=== PATIENT | male | born 1940 | race Caucasian/White ===

== ENCOUNTER 2016-08-06 03:51 | Inpatient (IN) | payer OTHER, MEDICARE ==
[~2016-08-06] VITALS: Ht 185.4 cm; Wt 72.6 kg
[~2016-08-06 03:51] MED LIST: ALPRAZOLAM0.5 M4 PO; ATORVASTATIN CA10 M1 PO; AUGMENTIN 875-1 EACH PO; ESCITALOPRAM OX10 MG PO; NITROFURANTOIN100 M5 PO
--- NOTE | 2016-08-06 08:33 | Admission Core Measures ---
Admission Meds I reviewed the following Meds: Current Medications Sig/Tom Start time Last Medication Dose Stop Time Status Admin Gentamicin Sulfate 80 MG ONCE 08/06 0000 NR (Gentamicin) 08/06 2358 Dextrose/Water 100 ML (D5W) Metronidazole 500 MG ONCE 08/06 NR (Flagyl) 08/06 2358 Sodium Chloride 100 ML (Normal Saline 0.9%) Acute Coronary Syndrome Inclusion Criteria ACS Diagnosis No Inpatient Core Measures LDL Reminder: If No, please order W/I first 24hr of stay Congestive Heart Failure Inclusion Criteria CHF Diagnosis No Cerebrovascular accident Inclusion Criteria CVA/TIA Diagnosis No Inpatient Core Measures Bedside Swallow Eval Reminder: If BSE failed, place ST order Antithrombotic Reminder: Order Antithrombotic Medication by end of day 2 Antithrombotic Reminder: Document Reason Antithrombotic Not ordered by end of day 2 AFIB/Flutter Reminder: If Present, add to problem list AFIB/Flutter Reminder: Order Anticoag Medication for pts with AFIB/Flutter Atherosclerosis Reminder: If Present, add to problem list LDL Reminder: If No, please order W/I first 24hr of stay PT Order Reminder: If No, please order Venous thromboembolism Inpatient Core Measures VTE Risk Factors: Age > 40, Surgery VTE Prophylaxis Ordered Inpt Mech & Pharm No Mech VTE prophylaxis d/t No contraindications No VTE Pharm Prophylaxis d/t No contraindications Inclusion Criteria - Per Current guidelines, there needs to be overlap - treatment for the first 5 days of Warfarin therapy. - Parenteral Anticoagulation (IV or SC) needs to be - given along with Warfarin therapy. VTE Diagnosis No VTE Type NONE VTE Confirmed by (Test) NONE Problem List As ranked by this Provider includes Assessment & Plan 1. S/P colectomy 2. S/P exploratory laparotomy 3. [place]-vesical fistula HOME MEDS Home Med List Alprazolam 0.5 MG TABLET 1 TAB PO TID ANXIETY (Reported) Atorvastatin Calcium 10 MG TABLET 1 TAB PO DAILY CHOLESTEROL (Reported) Escitalopram Oxalate 10 MG TABLET 1 TAB PO DAILY MENTAL HEALTH (Reported)
--- NOTE | 2016-08-06 12:58 | Operative Report ---
Operative/Inv Procedure Report Surgery Date: 08/06/16 Name of Procedure: Sigmoid colectomy with closure of colovesicle fistula Take down splenic flexure Pre-Operative Diagnosis: Colovesical fistula Chronic diverticulitis Post-Operative Diagnosis: Same same Estimated Blood Loss: less than 50ml Surgeon/Utility Accounts Director: ESA CARUSO,KHOA Josue/Erika DAVIS Anesthesia: general endotracheal tube Specimens: Sigmoid colon Microbiology: Urine Operative Indication: 75-year-old male with prior episode of urosepsis related to colovesical fistula. Colonoscopy and cystoscopy showed benign changes. Clinically this represents diverticular etiology. Presents for elective sigmoid resection. Operative/Procedure Note Note: After consent is brought to the operating room and laid supine. Gen. anesthesia was obtained and he was placed in lithotomy position and his abdomen was prepped and draped. Midline was incised sharply. We came through subcutaneous tissues with cautery. Identified the fascia and incised it with cautery. The peritoneum was then entered and fully. Bookwalter retraction system was placed. There is no evidence of acute infection. There is chronic diverticular changes to the sigmoid colon with extension to the posterior aspect of the bladder. Patient had cystoscopy with placement of bilateral ureteral stents preoperatively. Please see urologic dictation. We packed small bowel normal right upper quadrant to expose the sigmoid colon. The white line of Toldt was taken down with electrocautery and dissection made through the avascular planes. We identified the ureter, left-sided with help from the stents. We took her dissection down the pelvis and dissected the sigmoid colon off the posterior bladder with tedious cautery dissection. This portion of the dissection took approximately 45 minutes. There is a tiny hole in the colon with stool coming through. It was approximately 1-2 mm in size. The bladder side didn't appear to have an overt hole. No attempt at suturing it was made. Plan for healing the bladder hole would be decompression with Sinclair catheterization. At this point we took down the white line of Toldt up to the splenic flexure. We then chose a line of transection proximally and divided the bowel with the MATTIE 80 stapler. The mesenteric vessels were then taken with the LigaSure device. The bowel vessels were then divided up on the rectosigmoid junction and the bowel divided with a TA stapler and passed off the field. The peritoneum was irrigated normal saline. It appeared that we had close to enough length but there would be a small amount of tension so I decided to take down the splenic flexure. This was done with cautery. Were able to obtain an extra 3 cm of mobilization to perform a tension-free anastomosis. Towels were laid down in the stapled end of the bowel was opened after a pursestring was placed. The bowel was sized to a 31 EEA stapler. The anvil was placed into it and tied down. The fatty tissue overlying the proposed staple line was taken off with cautery. I then broke scrub and performed rigid proctoscopy. I then performed end-to-end anastomosis. There were 2 intact donuts. Gas insufflation revealed no leak. I then scrubbed back in and inspected the staple line. One area was imbricated with Lembert 3-0 silk sutures. The remainder of the staple line looked perfect. The pelvis then irrigated with normal saline. Hemostasis was adequate. I reinspected the left upper quadrant and noted some active bleeding. Just a small ooze. It appeared to be a tiny tear the capsule the spleen. It was controlled with direct pressure, FloSeal and Surgicel. Hemostasis was adequate on further inspection. We then replaced the omentum and closed the fascia with a running 0 Maxon suture. Was irrigated with saline and skin closed with opal. Sterile dressings applied. Sponge and needle counts are correct. CC: CECI CARUSO,LEONEL Brock
[2016-08-06 13:15] VITALS: BP 130/80
--- NOTE | 2016-08-06 15:05 | PN- General Surgery ---
Subjective Subjective: Expected incisional pain. Not yet out of bed. Denies nausea. No dizziness. No shortness of breath. No chest pains. Tolerating small sips. Objective Vital Signs and I&Os Vital Signs Date Time Temp Pulse Resp B/P Pulse O2 O2 Flow FiO2 Ox Delivery Rate 08/06 1403 Nasal 2.0L Cannula 08/06 1315 97.2 80 18 130/80 98 Nasal 2.0L Cannula 08/06 1315 98 Nasal 2.0L Cannula Intake & Output 08/06 1600 08/06 0800 08/06 0000 08/05 1600 08/05 0800 08/05 0000 Intake Total 650 Output Total Balance 650 Intake, IV 300 Intake, Oral 350 Patient 160 lb Weight Physical Exam: General - alert & oriented x 3. comfortable. no acute distress. Lungs - clear bilaterally. no w/w/r. Cardiac - s1s2. reg. Abdomen - soft. expected incisional tenderness. midline dressing stained, but intact. - one ureteral stent remaining, along with pardo catheter. blood-tinged, aria colored urine. Extremities - warm bilaterally. no c/c/e. calves soft and nontender b/l. athrombics active b/l. Assessment/Plan Assessment/Plan This 75 year old white male with chronic diverticulitis and colovesical fistula is POD#0 s/p open sigmoid colectomy, takedown of splenic flexure with closure of colovesicle fistula clears as tolerated d/c iv fluids in the morning if tolerating clears well tylenol / morphine prn pain control clinda / gentamycin x 2 doses post-op remove remaining ureteral stent in the morning pardo will remain in place through hospitalization and the patient will be discharged with pardo due to the colovesical fistula takedown, as per and oob/ambulation hep sc - dvt ppx f/u am labs will d/w Core Measures/Miscellaneous Venous Thromboembolism VTE Risk Factors: Age > 40, Surgery VTE Contraindications: No Contraindications VTE Prophylaxis Ordered Inpt Mech & Pharm VTE Diagnosis: No VTE Type: NONE VTE Confirmed by (Test): NONE Beta Kristin Is Beta Kristin a Home Med? No Antibiotics Is Patient on Antibiotics? Yes If Yes: prophylaxis
[2016-08-06 15:17] VITALS: BP 136/78
[2016-08-06 17:38] VITALS: BP 136/66
[2016-08-06 20:15] VITALS: BP 128/70
[2016-08-06 22:55] VITALS: BP 128/70
[2016-08-07 03:00] VITALS: BP 132/74
[2016-08-07 07:01] VITALS: BP 134/82
--- NOTE | 2016-08-07 07:30 | PN- General Surgery ---
See Addendum Subjective Subjective: POD #1 s/p open sigmoid colectomy/takedown of colovesicular fistula for diverticular disease. Resting comfortably in bed. Issues overnight with IV morphine making patient 'loopy'. Prefers IV tylenol. Denies CP/SOB, N/V, F/C. Yet to ambulate. Voiding via pardo catheter- one stent remaining in place. Objective Vital Signs and I&Os Vital Signs Date Time Temp Pulse Resp B/P Pulse O2 O2 Flow FiO2 Ox Delivery Rate 08/07 0701 98.1 66 16 134/82 99 Nasal 2.0L Cannula 08/07 0300 97.6 70 18 132/74 98 08/07 0000 Nasal 2.0L Cannula 08/06 2255 97.6 72 20 128/70 98 Nasal Cannula 08/06 2014 97.6 72 20 128/70 98 Nasal Cannula 08/06 1738 98.2 76 20 136/66 97 08/06 1517 97.1 72 20 136/78 98 Nasal 2.0L Cannula 08/06 1403 Nasal 2.0L Cannula 08/06 1315 97.2 80 18 130/80 98 Nasal 2.0L Cannula 08/06 1315 98 Nasal 2.0L Cannula Intake & Output 08/07 0800 08/07 0000 08/06 1600 08/06 0800 08/06 0000 08/05 1600 Intake Total 1000 1900 650 Output Total 250 450 Balance 750 1450 650 Intake, IV 1000 1200 300 Intake, Oral 700 350 Output, Urine 250 450 Patient 160 lb Weight Physical Exam: Gen: AAOx3 in NAD Cor: S1+S2+ Lungs: CTA martine Abd: soft, NT, ND, scant BS auscultated. Lower midline incisional dressing with dried sanguinous drainage. No surrounding erythema. Ext: no edema or calf tenderness to martine lower extremities. Palpable DP pulses martine. Current Medications: Current Medications Sig/Tom Start time Last Medication Dose Route Stop Time Status Admin Acetaminophen 1,000 MG Q6H 08/06 1600 AC 08/07 IV 08/07 1159 0431 Alprazolam 0.5 MG TID PRN 08/06 0830 AC PO 08/13 0829 Atorvastatin Calcium 10 MG 1700 08/06 1700 AC 08/06 PO 1630 Clindamycin 600 MG IQ8 08/06 1600 DC 08/06 Dextrose/Water 50 ML IV 08/07 0029 1822 Escitalopram Oxalate 10 MG DAILY 08/06 1000 AC 08/06 PO 1452 Gentamicin Sulfate 80 MG IQ8 08/06 1600 DC 08/06 Dextrose/Water 100 ML IV 08/07 0030 1630 Gentamicin Sulfate 80 MG ONCE 08/06 0000 DC Dextrose/Water 100 ML IV 08/06 2359 Heparin Sodium 5,000 UNIT Q8 08/06 2200 AC 08/07 (Porcine) SC 0451 Hydromorphone HCl 2 MG .STK-MED ONE 08/06 1155 DC IM 08/06 1156 Metronidazole 500 MG ONCE 08/06 0000 DC Sodium Chloride 100 ML IV 08/06 2359 Morphine Sulfate 2 MG Q3P PRN 08/06 1330 DC IV Morphine Sulfate 4 MG Q3P PRN 08/06 1330 DC 08/07 IV 0200 Morphine Sulfate 6 MG Q3P PRN 08/06 1330 DC IV Ondansetron HCl 4 MG Q6P PRN 08/06 1330 AC IV Pantoprazole Sodium 40 MG DAILY 08/06 1000 AC 08/06 IV 1450 Potassium Chloride 20 MEQ Q10H 08/06 1330 r 08/07 Dextrose/Sodium 1,000 ML IV 0038 Chloride Assessment/Plan Assessment/Plan A: POD #1 s/p sigmoid colectomy for diverticular disease/CV fistula. Stents placed intraoperatively with one remaining in place. Pardo in place. AVSS. Plan: Will decrease IVF to 75ml/hr as patient not taking much clears other than water. Will encourage PO intake today. Await increase in bowel function. OOB and ambulate. Physical therapy ordered. Likely stent removal today. Pardo to remain in place. Will d/c Morphine. Keep IV Tylenol. Will discuss with environmental field office manager attending regarding use of Toradol. Oxygen weaned off during interview. Core Measures/Miscellaneous Venous Thromboembolism VTE Risk Factors: Age > 40, Surgery VTE Contraindications: No Contraindications VTE Prophylaxis Ordered Inpt Mech & Pharm VTE Diagnosis: No VTE Type: NONE VTE Confirmed by (Test): NONE Beta Kristin Is Beta Kristin a Home Med? No Antibiotics Is Patient on Antibiotics? Yes If Yes: prophylaxis
[2016-08-07 08:56] LABS: ABSOLUTE BASOPHIL COUNT 0 /CUMM (0.0-0.2); ABSOLUTE EOSINOPHIL COUNT 0 /CUMM (0.0-0.7); ABSOLUTE GRANULOCYTE CT 11.1 /CUMM (1.4-6.5); ABSOLUTE MONOCYTE COUNT 1.3 /CUMM (0.10-0.60); BASOPHIL % 0 % (0.0-2.0); EOSINOPHIL % 0 % (0-5); GRANULOCYTE % 83.3 % (42.2-75.2); MEAN CORPUSCULAR HGB 33.1 PG (27.0-31.0); MEAN CORPUSCULAR HGB CONC 33.8 G/DL (33.0-37.0); MEAN CORPUSCULAR VOLUME 97.9 FL (80.0-94.0); MEAN PLATELET VOLUME 7.9 FL (7.4-10.4); PLATELET COUNT 176 /CUMM (130-400); RBC DISTRIBUTION WIDTH 13.4 % (11.5-14.5); RED BLOOD CELL CT 3.37 /CUMM (4.70-6.10)
--- NOTE | 2016-08-07 09:00 | Operative Report ---
Operative/Inv Procedure Report Surgery Date: 08/06/16 Name of Procedure: Cystoscopy and insertion of bilateral ureteral stents Pre-Operative Diagnosis: [place]-vesical fistula Post-Operative Diagnosis: same Estimated Blood Loss: scant Surgeon/Particleboard Factory Worker: KHOA Bailey MD Anesthesia: general endotracheal tube Drains: Right and Left ureteral stents and pardo Specimens: Urine C&S Complications: none Condition: stable Operative Indication: colo-vesical fistula. Pre op ureteral stents requested Operative/Procedure Note Note: The patient was taken to the OR and identified. He was placed on the operating table in the supine position and a time out executed appropriately. Generan anesthesia was induced via an ETT. He was then placed in the dorsal lithotomy position and prepped and draped in the usual manner for cystoscopy. A surgical pause was executed appropriately. The 22 fr cystoscope sheath was placed in the bladder under direct vision using the 30 degree lens. The anterior urethra was normal. The prostate was definitely enlarged causing bladder outlet obstruction. Urine was collected for culture. The bladder was inspected. It was heavily trabeculated and diffusely inflamed. The left ureteral orifice was identified and an open ended catheter placed in the orificed and advanced up to the level of the kidney. The right ureteral orifice was then identified and an open ended catheter placed within it and advanced up the the level of the R kidney. The cystoscope was removed leaving both ureteral stents in place. A pardo was placed and the stents fixed to the pardo with cloth tape. Each stent and the pardo were placed to separate drainage bags. The patient tolerated this portion of the procedure well and was then to undergo sigmoid resection Findings: Diffusely inflamed, heavily trabeculated bladder and enlarged prostate. Discharge Disposition: PACU
[2016-08-07 11:09] LABS: WHITE BLOOD CELL COUNT 13.3 /CUMM (4.8-10.8)
[2016-08-07 14:57] VITALS: BP 110/70
[2016-08-07 22:35] VITALS: BP 148/84
[2016-08-08 06:51] VITALS: BP 140/90
--- NOTE | 2016-08-08 08:43 | PN- General Surgery ---
See Addendum Subjective Subjective: Mr Claudio has no major complaints this morning. He tolerated clears all day yesterday and has had 3 BM's over the past 24 hours. Although he denies nausea, he does admit to decreased appetite this morning and feeling a little "quesy." He is not typically a morning/breakfast eater, but is requesting coffee. Pardo catheter remains in place. Otherwise denies TOMLINSON, dizziness, CP, SOB. Objective Vital Signs and I&Os Vital Signs Date Time Temp Pulse Resp B/P Pulse O2 O2 Flow FiO2 Ox Delivery Rate 08/08 0651 97.9 78 16 140/90 93 Room Air 08/07 2235 98.3 77 20 148/84 92 Room Air 08/07 1457 97.7 71 20 110/70 93 Nasal Cannula Intake & Output 08/08 1600 08/08 0800 08/08 0000 08/07 1600 08/07 0800 08/07 0000 Intake Total 792 135 3798 1000 1900 Output Total 600 950 520 250 450 Balance 150 -150 297 301 1254 Intake, IV 063 929 7329 1200 Intake, Oral 150 800 480 700 Output, Urine 600 950 520 250 450 Patient 160 lb Weight Physical Exam: General: Pt is awake and alert. NAD. Cardiac: Regular. Pulmonary: CTA bilaterally. Abdomen: Soft, mildly distended. Midline dressing contained a moderate amount of old bloody drainage. It was removed today. No active drainage or erythema noted. Incision remains intact with opal in place. Hypoactive BS were heard. Ext: warm, no edema or calf tenderness appreciated. Assessment/Plan Assessment/Plan Pt is a 75 yo M with a pmh significant for hyperlipidemia, anxiety, and diverticular disease, who is now POD #2 s/p open sigmoid colectomy for colovesicular fistula. Remaining ureteral stent was removed yesterday and pardo remains in place. Plan: -Advance diet to full liquids with toast. Will continue to advance as tolerated. -Heplock IVF. -F/u morning labs. -Morphine was dc'ed due to intolerance. He is using IV APAP around the clock and prn toradol for discomfort. Will hold IV APAP after 4 doses and convert to po tylenol. Also add percocet as needed when taking adequate po. -Leave pardo in place for colovesicula fistula. -24 hours of IV abx ppx complete. -SC heparin and alps for DVT ppx. Encourage ambulation. -Will d/w attending. Core Measures/Miscellaneous Venous Thromboembolism VTE Risk Factors: Age > 40, Surgery VTE Contraindications: No Contraindications VTE Prophylaxis Ordered Inpt Mech & Pharm VTE Diagnosis: No VTE Type: NONE VTE Confirmed by (Test): NONE Beta Kristin Is Beta Kristin a Home Med? No Antibiotics Is Patient on Antibiotics? No
[2016-08-08 09:16] LABS: ABSOLUTE BASOPHIL COUNT 0 /CUMM (0.0-0.2); ABSOLUTE EOSINOPHIL COUNT 0 /CUMM (0.0-0.7); ABSOLUTE GRANULOCYTE CT 8.6 /CUMM (1.4-6.5); ABSOLUTE MONOCYTE COUNT 1.1 /CUMM (0.10-0.60); BASOPHIL % 0.2 % (0.0-2.0); EOSINOPHIL % 0.3 % (0-5); GRANULOCYTE % 79.4 % (42.2-75.2); HEMATOCRIT 36.5 % (42-52); MEAN CORPUSCULAR HGB CONC 33.4 G/DL (33.0-37.0); MEAN CORPUSCULAR VOLUME 98.7 FL (80.0-94.0); MEAN PLATELET VOLUME 8.6 FL (7.4-10.4); PLATELET COUNT 186 /CUMM (130-400); RBC DISTRIBUTION WIDTH 13.3 % (11.5-14.5); WHITE BLOOD CELL COUNT 10.8 /CUMM (4.8-10.8)
[2016-08-08 14:10] VITALS: BP 140/80
--- NOTE | 2016-08-08 19:29 | Patient Discharge Instructions ---
Discharge Instructions General Discharge Information You were seen/treated for: COLOVESICAL FISTULA You had these procedures: OPEN SIGMOID RESECTION Watch for these problems: FEVER >101, REDNESS, DRAINAGE FROM THE WOUND, INCREASED ABDOMINAL PAIN, PERSISTENT NAUSEA/VOMITING, CHEST PAIN, SOB Call Surgeon to remove: Huson (2 WEEKS POSTOP) Do not soak the wound: Yes No bath, but you may shower: Yes Other wound care: YOU MAY SHOWER DESIRED. OTHERWISE KEEP WOUND CLEAN AND DRY AT ALL TIMES. DRY DRESSING IF NEEDED FOR COMFORT. Diet Continue normal diet: No Recommended Diet: Low Residue Activity Full Activity/No Limits: No Activity Self Limited: Yes Pounds, do NOT lift more than: 5 Other activity limits: NO STRENUOUS ACTIVITY OR HEAVY LIFTING, PUSHING OR PULLING. NO DRIVING IF USING NARCOTICS. Acute Coronary Syndrome Inclusion Criteria At DC or during hospital stay patient has or had the following: ACS DIAGNOSIS No Discharge Core Measures Meds if any: Prescribed or Continued at Discharge Meds if any: NOT Prescribed or Continued at Discharge Congestive Heart Failure Inclusion Criteria At DC or during hospital stay patient has or had the following: CHF DIAGNOSIS No Discharge Core Measures Meds if any: Prescribed or Continued at Discharge Meds if any: NOT Prescribed or Continued at Discharge Cerebrovascular accident Inclusion Criteria At DC or during hospital stay patient has or had the following: CVA/TIA Diagnosis No Discharge Core Measures Meds if any: Prescribed or Continued at Discharge Meds if any: NOT Prescribed or Continued at Discharge Venous thromboembolism Inclusion Criteria VTE Diagnosis No VTE Type NONE VTE Confirmed by (Test) NONE Discharge Core Measures - Per Current guidelines, there needs to be overlap - treatment for the first 5 days of Warfarin therapy. - If discharged on Warfarin prior to 5 days of - overlap therapy, the patient will need to be - assessed for post discharge needs including - *Post discharge parental anticoagulation - *Warfarin and/or parental anticoagulation education - *Follow up date to check INR post discharge At least 5 days overlap therapy as Inpatient No Meds if any: Prescribed or Continued at Discharge Note: Overlap Therapy is Warfarin and Anticoagulant Meds if any: NOT Prescribed or Continued at Discharge
[2016-08-08 23:22] VITALS: BP 148/70
[2016-08-09 06:31] VITALS: BP 154/80
--- NOTE | 2016-08-09 07:41 | PN- General Surgery ---
See Addendum Subjective Subjective: No complaints. Going to try low residue diet for breakfast. Reports some intermittent nausea. Passing flatus and reports multiple bms. Out of bed and ambulating with rolling walker. No dizziness. No shortness of breath. No chest pains. Objective Vital Signs and I&Os Vital Signs Date Time Temp Pulse Resp B/P Pulse O2 O2 Flow FiO2 Ox Delivery Rate 08/09 0631 97.9 70 20 154/80 95 Room Air 08/08 2322 99.5 80 20 148/70 93 Room Air 08/08 1410 98.4 73 20 140/80 94 Room Air Intake & Output 08/09 0800 08/09 0000 08/08 1600 08/08 0800 08/08 0000 08/07 1600 Intake Total 704 207 0957 178 343 6525 Output Total 675 650 600 950 520 Balance 120 -555 530 150 -150 610 Intake, IV 300 600 650 Intake, Oral 120 120 880 150 800 480 Number 2 Bowel Movements Output, Urine 675 650 600 950 520 Patient 160 lb Weight Physical Exam: General - alert and oriented x 3. comfortable no acute distress. Cardiac - s1s2. reg. Lungs - clear bilaterally Abdomen - soft. midline incision well approximated with opal. no erythema. no exudates. Extremities - warm b/l. no c/c/e. calves soft and nontender b/l. Assessment/Plan Assessment/Plan This 75 year old male is POD #3 s/p open sigmoid colectomy for colovesicular fistula, with pardo that will remain in place at the time of his discharge Going to try low residue diet for breakfast pain improves with iv tylenol and prn toradol. not taking morphine. oob/ambulating hep sc - dvt ppx pardo renewed due to hx of colovesicular fistula f/u am labs d/c planning, today vs tomorrow will d/w Core Measures/Miscellaneous Venous Thromboembolism VTE Risk Factors: Age > 40, Surgery VTE Contraindications: No Contraindications VTE Prophylaxis Ordered Inpt Mech & Pharm VTE Diagnosis: No VTE Type: NONE VTE Confirmed by (Test): NONE Beta Kristin Is Beta Kristin a Home Med? No Antibiotics Is Patient on Antibiotics? No
[2016-08-09] MEDS ORDERED: PERCOCET 5-3251 EACH PO (07:46)
[2016-08-09 14:45] VITALS: BP 120/70
[2016-08-09 22:54] VITALS: BP 134/80
[2016-08-10 06:58] VITALS: BP 140/82
--- NOTE | 2016-08-10 08:40 | PN- General Surgery ---
Subjective Subjective: NAEO. Patient without new c/o. Pain controlled. Tolerating diet without n/v. +flatus/bm. OOB and ambulating. Denies CP/SOB. Objective Vital Signs and I&Os Vital Signs Date Time Temp Pulse Resp B/P Pulse O2 O2 Flow FiO2 Ox Delivery Rate 08/10 0658 98.4 66 16 140/82 96 Room Air 08/10 0000 95 Room Air 08/09 2254 99.5 69 20 134/80 95 Room Air 08/09 1445 98.7 70 20 120/70 96 Intake & Output 08/10 1600 08/10 0800 08/10 0000 08/09 1600 08/09 0800 08/09 0000 Intake Total 1100 500 550 120 120 Output Total 250 125 200 675 Balance 850 375 350 120 -555 Intake, IV 500 Intake, Oral 600 500 550 120 120 Number 3 Bowel Movements Output, Urine 250 125 200 675 Physical Exam: General: NAD, comfortable, A&Ox3 Chest: CTAB, no wheezes, no rales. Heart S1S2 normal. Abdomen: soft, nondistended. Appropriately TTP. Midline incision intact without signs of infection. +Bowel sounds x4 quadrants Ext: No calve swelling/TTP, neurovascularly intact bilateral lower extremities Current Medications: Current Medications Sig/Tom Start time Last Medication Dose Route Stop Time Status Admin Acetaminophen 650 MG Q4P PRN 08/08 1000 AC 08/09 PO 1116 Alprazolam 0.5 MG TID PRN 08/06 0830 AC 08/10 PO 08/13 0829 0415 Atorvastatin Calcium 10 MG 1700 08/06 1700 AC 08/09 PO 1600 Docusate Sodium 100 MG BID PRN 08/09 0745 AC PO Escitalopram Oxalate 10 MG DAILY 08/06 1000 AC 08/09 PO 0942 Heparin Sodium 5,000 UNIT Q8 08/06 2200 AC 08/08 (Porcine) SC 1415 Ketorolac 15 MG Q6-PRN PRN 08/07 1245 AC 08/10 Tromethamine IV 08/12 1244 0420 Magnesium Oxide 400 MG BID 08/09 1100 DC 08/09 PO 08/09 2201 1342 Ondansetron HCl 4 MG Q6P PRN 08/06 1330 AC IV Oxycodone/ 1 TAB Q4P PRN 08/08 0900 AC Acetaminophen PO Oxycodone/ 2 TAB Q4P PRN 08/08 0900 AC Acetaminophen PO Pantoprazole Sodium 40 MG DAILY 08/06 1000 AC 08/09 IV 0942 Patient Medication 1 ED .STK-MED ONE 08/09 1421 DC Teaching ED 08/09 1422 Potassium Chloride 40 MEQ ONCE ONE 08/09 1100 DC 08/09 PO 08/09 1101 1342 Sodium Chloride 500 ML BOLUS ONE 08/09 2300 DC 08/09 IV 08/09 2359 2353 Results Last 48 Hours of Labs: Laboratory Tests 08/09 0820 Chemistry Sodium (137 - 145 mmol/L) 138 Potassium (3.5 - 5.1 mmol/L) 3.7 Chloride (98 - 107 mmol/L) 99 Carbon Dioxide (22 - 30 mmol/L) 27 Anion Gap (5 - 16) 11 BUN (9 - 20 mg/dL) 6 L Creatinine (0.7 - 1.2 mg/dL) 0.7 Estimated GFR (>60 ml/min) > 60 BUN/Creatinine Ratio (7 - 25 %) 8.6 Magnesium (1.6 - 2.3 mg/dL) 1.8 Assessment/Plan Assessment/Plan 75yo M POD #4 s/p open sigmoid colectomy for colovesicular fistula, with pardo that will remain in place at the time of his discharge Pain control LRD oob/ambulate hep sc - dvt ppx pardo renewed due to hx of colovesicular fistula f/u am labs d/c home today d/w Core Measures/Miscellaneous Venous Thromboembolism VTE Risk Factors: Age > 40, Surgery VTE Contraindications: No Contraindications VTE Prophylaxis Ordered Inpt Mech & Pharm VTE Diagnosis: No VTE Type: NONE VTE Confirmed by (Test): NONE Beta Kristin Is Beta Kristin a Home Med? No Antibiotics Is Patient on Antibiotics? No
--- NOTE | 2016-08-10 08:55 | Surgical Discharge Summary ---
Visit Information Visit Dates Admission Date: 08/06/16 Discharge Date: 08/10/16 History of Present Illness Chief Complaint: PNEUMATURIA Medical History Blood Transfusion Hx: No Neurological: NONE EENT: NONE Cardiovascular: hyperlipidemia Respiratory: NONE Gastrointestinal: history of polyp excision with colonoscopy 5 y/a Hepatic: NONE Renal: dx with bph, no tx Musculoskeletal: chronic back pain Psychiatric: anxiety, depression Endocrine: NONE Blood Disorders: NONE Cancer(s): NONE DISTRICT OR DISTRICT OFFICE DIRECTOR/Reproductive: NONE History of MRSA: No History of VRE: No History of CDIFF: No Isolation History: Standard Surgical History Pertinent Surgical History: colon resection, HERNIA REAPAIR, RT ROTATOR CUFF SIGMOID COLECTOMY Psychosocial History Where Do You Live? Home Who Do You Live With? Significant Other Services at Home: None What is Your Primary Language? Italian Review of Systems: NOT PERFORMED AT D/C Hospital Course Course Attending Physician: KHOA SEE MD Primary Care Physician: LEONEL ORNELAS MD Hospital Course: ADMITTED AFTER UNEVENTFUL SIGMOID COLECTOMY FOR COLOVESICLE FISTULA. HE HAD RETURN OF BOWEL FUNCTION POD1 AND DIET ADVANCED. ELLIS WAS LEFT IN PLACE DUE TO HEALING FISTULA SITE AND WILL BE REMOVED OUTPT IN FOLLOW UP. Allergies: Coded Allergies: amoxicillin (From AUGMENTIN) (Intermediate, RASH 05/13/16) clavulanic acid (From AUGMENTIN) (Intermediate, RASH 05/13/16) Significant Procedures: CYSTOSCOPY WITH STENT PLACEMENT SIGMOID COLECTOMY WITH TAKEDOWN SPLENIC FLEXURE. Disposition Summary Disposition Principal Diagnosis: COLOVESICLE FISTULA Additional Diagnosis: NONE Discharge Disposition: home or self care Discharge Instructions General Discharge Information Code Status: Full Code Patient's Diet: LOW RESIDUAL Patient's Activity: NO LIFTING Follow-Up Instructions/Appts: 2 WEEKS ARRANGED FOR STAPLE REMOVAL AND ELLIS REMOVALL. Medications at Discharge Discharge Medications: Continue taking these medications: Atorvastatin Calcium (Atorvastatin Calcium) 10 MG TABLET 1 Tablet ORAL DAILY Qty = 30 Comments: Last Taken: 05/08/16 Time: 855 AM Alprazolam (Alprazolam) 0.5 MG TABLET 1 Tablet ORAL THREE TIMES DAILY Qty = 90 Comments: Last Taken: 05/08/16 Time: 855 AM Escitalopram Oxalate (Escitalopram Oxalate) 10 MG TABLET 1 Tablet ORAL DAILY Qty = 30 Comments: Last Taken: 05/08/16 Time: 855 AM Start taking the following new medications: Acetaminophen (Tylenol) 325 MG TABLET 650 Milligram ORAL EVERY 4 HOURS NEEDED as needed for PAIN SCALE 1-3 ( MILD) Days = 10 No Refills Instructions: available over the counter. do not combine with tylenol. Docusate Sodium (Docusate Sodium) 100 MG CAPSULE 100 Milligram ORAL TWICE DAILY as needed for CONSTIPATION Days = 14 No Refills Instructions: stool softener available over the counter Oxycodone HCl/Acetaminophen (Percocet 5-325 MG Tablet) 5 MG-325 MG TABLET 1-2 Tablet ORAL EVERY 4-6 HOURS NEEDED as needed for pain control Qty = 30 No Refills Instructions: take as directed, as needed for pain control. do not combine with tylenol. Copies To: FLY CARUSO,GRAHAM Anguiano; CECI CARUSO,LEONEL Brock
[2016-08-10] MEDS ORDERED: TYLENOL325 M1 PO (10:42)
[2016-08-10] MEDS ORDERED: DOCUSATE SODIU100 M3 PO (10:43)
== END 2016-08-10 13:15 | disposition home health service (06) | DRG 330 ==
LOC: ENRESERVTM → ENRESERVDT → 2NA 03:51 → ENPENDDIS 03:51 → SDA 03:51 → 2NA 13:05
PROVIDERS: Physician Assistant; Physician Assistant Surgical; ADMIT Surgery
PROC: 0DBN0ZZ Excision of Sigmoid Colon, Open Approach (ICD-10-PCS; principal; 2016-08-06)
PROC: 0DQN0ZZ Repair Sigmoid Colon, Open Approach (ICD-10-PCS; principal; 2016-08-06)
PROC: 0T788DZ Dilation of Bilateral Ureters with Intraluminal Device, Via Natural or Artificial Opening Endoscopic (ICD-10-PCS; 2016-08-06)
DX: K57.30 Diverticulosis of large intestine without perforation or abscess without bleeding (principal); N32.1 Vesicointestinal fistula; Z87.891 Personal history of nicotine dependence; E78.5 Hyperlipidemia, unspecified; F41.1 Generalized anxiety disorder
CPT/HCPCS: 2NASP; 36415; 82436; 87086; 88307; 93005; 93010; 97116-GO; 97161-GP; C9399; J0131; J1580; J1644; J2405; J7040; J7042; S5012

== ENCOUNTER 2017-01-19 09:19 | Emergency (ER) | payer OTHER, MEDICARE ==
[~2017-01-19] VITALS: Ht 185.4 cm; Wt 73.5 kg
[~2017-01-19 09:19] MED LIST changes: +DOCUSATE SODIU100 M3 PO; +PERCOCET 5-3251 EACH PO; +TYLENOL325 M1 PO
[2017-01-19] MEDS ORDERED: TRAZODONE HCL50 M1 PO (10:27)
[2017-01-19 10:52] LABS: ABSOLUTE BASOPHIL COUNT 0 /CUMM (0.0-0.2); ABSOLUTE EOSINOPHIL COUNT 0.1 /CUMM (0.0-0.7); ABSOLUTE GRANULOCYTE CT 6.2 /CUMM (1.4-6.5); ABSOLUTE LYMPH COUNT 1.1 /CUMM (1.2-3.4); ABSOLUTE MONOCYTE COUNT 0.9 /CUMM (0.10-0.60); BASOPHIL % 0.4 % (0.0-2.0); EOSINOPHIL % 1.1 % (0-5); GRANULOCYTE % 74.5 % (42.2-75.2); HEMATOCRIT 41.6 % (42-52); MEAN CORPUSCULAR HGB 31.7 PG (27.0-31.0); MEAN CORPUSCULAR HGB CONC 32.9 G/DL (33.0-37.0); MEAN CORPUSCULAR VOLUME 96.4 FL (80.0-94.0); MEAN PLATELET VOLUME 7.2 FL (7.4-10.4); PLATELET COUNT 207 /CUMM (130-400); RBC DISTRIBUTION WIDTH 13.9 % (11.5-14.5); RED BLOOD CELL CT 4.31 /CUMM (4.70-6.10); WHITE BLOOD CELL COUNT 8.3 /CUMM (4.8-10.8)
--- NOTE | 2017-01-19 10:54 | RADIOLOGY REPORT ---
EXAMINATION: XR CHEST CLINICAL INFORMATION: Chest pain. COMPARISON: Chest radiograph dated 05/05/2016. TECHNIQUE: 2 views of the chest were obtained. FINDINGS: The heart is normal in size. There is mild atherosclerotic calcification of the aortic knob. The lungs appear slightly hyperinflated, consistent with chronic obstructive pulmonary physiology The lungs are clear. No pleural effusion or pneumothorax. Degenerative changes of the thoracic spine. IMPRESSION: No acute disease. Findings consistent with chronic obstructive pulmonary physiology.
--- NOTE | 2017-01-19 11:14 | ED GENERAL ADULT ---
History of Present Illness General Chief Complaint: General Adult Stated Complaint: SENT BY PMD FOR LETHARGY/JOINT PAIN Source: patient, family Exam Limitations: no limitations Vital Signs & Intake/Output Vital Signs & Intake/Output ED Intake and Output 01/20 0000 01/19 1200 Intake Total Output Total Balance Patient 162 lb Weight Allergies Coded Allergies: amoxicillin (From AUGMENTIN) (Intermediate, RASH 05/13/16) clavulanic acid (From AUGMENTIN) (Intermediate, RASH 05/13/16) Reconcile Medications Alprazolam 0.5 MG TABLET 1 TAB PO TID ANXIETY (Reported) Atorvastatin Calcium 10 MG TABLET 1 TAB PO DAILY CHOLESTEROL (Reported) Doxycycline Hyclate 100 MG TABLET 1 TAB PO BID COPD Escitalopram Oxalate 10 MG TABLET 1 TAB PO DAILY MENTAL HEALTH (Reported) Trazodone HCl 50 MG TABLET 1 TAB PO TID PRN ANXIETY (Reported) Triage Note: PT STATES THAT HE CALLED HIS PMD DUE TO BEING TIRED AND ACHEY FOR THE PAST WEEK. PMD DR ORNELAS TOLD HIM TO COME TO ER AND HAVE BLOOD WORK AND CXR. DENIES COUGH/SOB/CP.AFEBRILE Triage Nurses Notes Reviewed? yes Onset: Gradual Duration: week(s): Timing: recent history Severity: moderate HPI: 76-year-old male presents to emergency department complaining of arthralgias and increasing fatigue 1 week. Patient states that he called primary care doctor's office yesterday who told him to report to the emergency department for a chest x-ray and blood work. He is worried about Lyme disease however has not noticed a tick on him recently. He does have a history of osteoarthritis. He denies fevers, chills, abdominal pain, nausea, vomiting, diarrhea, constipation, rash, urinary symptoms. He was treated a few months ago for a UTI. Patient is a former smoker, quit years ago. (SHUKRI PERKINS,PASHA RESTREPO) Past History Travel History Traveled to [place] past 21 day No Medical History Any Pertinent Medical History? 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 No (PASHA WATT PA-C) Review of Systems Review of Systems Constitutional: Reports: see HPI. EENTM: Reports: no symptoms. Respiratory: Reports: no symptoms. Cardiovascular: Reports: no symptoms. GI: Reports: no symptoms. Genitourinary: Reports: no symptoms. Musculoskeletal: Reports: see HPI. Skin: Reports: no symptoms. Neurological/Psychological: Reports: no symptoms. Hematologic/Endocrine: Reports: no symptoms. Immunologic/Allergic: Reports: no symptoms. All Other Systems: Reviewed and Negative (PASHA WATT PA-C) Physical Exam Physical Exam General Appearance: well developed/nourished, no apparent distress, alert, awake Comments: Well-developed well-nourished person in no acute distress HEENT: HEAD is atraumatic. moist mucous membranes, no erythema. Neck: Supple, no lymphadenopathy, normal range of motion without pain or tenderness Back: Nontender, Full range of motion Cardiovascular: Regular rate and rhythms no murmurs rubs or gallops, normal JVP Respiratory: No respiratory distress. Patient speaking in full complete sentences. Breath sounds clear to auscultation bilaterally: NO W/R/R Abdomen: Soft, nontender nondistended, no appreciable organomegaly. Normal bowel sounds. No rebound/guarding, No appreciable enlargement of the abdominal aorta, No ascites. Extremity: No edema, full range of motion of extremities, normal and equal pulses bilaterally Neuro: Alert oriented x3, motor sensory normal, There were no obvious focal neurologic abnormalities. Skin: No appreciable rash on exposed skin, skin is warm and dry. Psych: Mood and affect is normal, memory and judgment is normal. Core Measures ACS in differential dx? Yes CVA/TIA Diagnosis: No Severe Sepsis Present: No Septic Shock Present: No (PASHA WATT PA-C) Progress Differential Diagnoses I considered the following diagnoses in my evaluation of the patient: [lyme disease, osteoarthritis, anemia, viral illness, COPD exacerbation, ACS] Plan of Care: Orders Procedure Date/time Status EKG 01/19 1119 Active LYME TITRE 01/19 1020 Active TROPONIN LEVEL 01/19 1012 Complete COMPREHENSIVE METABOLIC PANEL 01/19 1012 Complete CBC WITHOUT DIFFERENTIAL 01/19 1012 Complete Laboratory Tests 01/19/17 1044: Anion Gap 12, Estimated GFR > 60, BUN/Creatinine Ratio 12.5, Glucose 111 H, Calcium 9.5, Total Bilirubin 0.7, AST 26, ALT 28, Alkaline Phosphatase 68, Troponin I < 0.01, Total Protein 7.2, Albumin 4.4, Globulin 2.8, Albumin/ Globulin Ratio 1.6, CBC w Diff NO MAN DIFF REQ, RBC 4.31 L, MCV 96.4 H, MCH 31.7 H, RDW 13.9, MPV 7.2 L, Gran % 74.5, Lymphocytes % 13.2 L, Monocytes % 10.8 H, Eosinophils % 1.1, Basophils % 0.4, Absolute Granulocytes 6.2, Absolute Lymphocytes 1.1 L, Absolute Monocytes 0.9 H, Absolute Eosinophils 0.1, Absolute Basophils 0, PUBS MCHC 32.9 L, Lyme Disease Antibody Pending CXR shows COPD without acute disease. PAtient is a former smoker. Current fatigue may possibly be due to worsening of chronic COPD, patient previously unaware of COPD diagnosis. Spoke with Dr. Wasserman regarding patient, will give doxy BID x 10 days to cover for lyme/pulmonary disease. Patient will follow up with transition lead referal given to him today. The patient will follow up with his primary care doctor for further workup and evaluation. The patient is in no acute distress, his vital signs are stable, he is nontoxic appearing. The patient is in agreement with the plan of care. (SHUKRI PERKINS,PASHA RESTREPO) Diagnostic Imaging: Viewed by Me: Radiology Read. Discussed w/RAD: Radiology Read. CXR Impression: PATIENT: SUSY WOOD PRESENT AGE: 76 PATIENT ACCOUNT NO: [id number] : 39 LOCATION: [facility] ORDERING PHYSICIAN: LIZANDRO ALDRICH DO SERVICE DATE: 01/19/17 EXAM TYPE: RAD - XRY-CHEST XRAY, PA AND LATERAL EXAMINATION: XR CHEST CLINICAL INFORMATION: Chest pain. COMPARISON: Chest radiograph dated 05/05/2016. TECHNIQUE: 2 views of the chest were obtained. FINDINGS: The heart is normal in size. There is mild atherosclerotic calcification of the aortic knob. The lungs appear slightly hyperinflated, consistent with chronic obstructive pulmonary physiology The lungs are clear. No pleural effusion or pneumothorax. Degenerative changes of the thoracic spine. IMPRESSION: No acute disease. Findings consistent with chronic obstructive pulmonary physiology. DICTATED BY: MARTINE GUERIN MD DATE/ TIME DICTATED:01/19/171035 LINEN CLERK:KING DATE/TIME TRANSCRIBED: 01/19/171035 CONFIDENTIAL, DO NOT COPY WITHOUT APPROPRIATE AUTHORIZATION. < Electronically signed in Other Vendor System> SIGNED BY: MARTINE GUERIN MD 01/19/17 105 Initial ED EKG: sinus rhythm @64bpm, normal axis, no ST segment elevation or depression (SHUKRI PERKINS,PASHA RESTREPO) Departure Departure Disposition: HOME OR SELF CARE Condition: Stable Clinical Impression Primary Impression: Arthralgia Secondary Impressions: COPD (chronic obstructive pulmonary disease), Fatigue Referrals: Delmy RAMIREZ MD, MD,LEONEL Brock (PCP/Family) Additional Instructions: Take full course of antibiotics. Continue to take your over the counter pain medication for your joint pains. Follow-up with your primary care doctor, call the office to inform them of the results of today's visit. Follow-up with pulmonary doctor regarding your COPD, call the office to make an appointment. Return with any worsening symptoms or concerns. We will call you with the results of your Lyme titer, if you do not hear back in 1 week please call [facility]. Please note that there might be incidental findings in your evaluation that are unrelated to the current emergency department visit. Please notify your primary care doctor about this emergency department visit in order to obtain and review all of the testing performed so that these incidental findings can be monitored as needed. If you had an x-ray performed, please understand that some fractures may not be seen on the initial set of x-rays. If your symptoms persist you might need a repeat set of x-rays to check for such a fracture. If you're unable to follow up as outlined in the discharge instructions please return to the emergency department. Thank you for choosing the [facility] Emergency Department for your care. It was a pleasure to serve you today. Departure Forms: Customer Survey General Discharge Information Prescriptions: Current Visit Scripts Doxycycline Hyclate 1 TAB PO BID #20 TAB (PASHA WATT PA-C) PA/PRECISION FARMING SPECIALIST Co-Sign Statement Statement: ED Attending supervision documentation- x I saw and evaluated the patient. I have also reviewed all the pertinent lab results and diagnostic results. I agree with the findings and the plan of care as documented in the PA's/PRECISION FARMING SPECIALIST's documentation. [] I have reviewed the ED Record and agree with the PA's/PRECISION FARMING SPECIALIST's documentation. [] Additions or exceptions (if any) to the PAs/PRECISION FARMING SPECIALIST's note and plan are summarized below: [] (LEONARDO CARUSO,ERICKA) Critical Care Note Critical Care Note Critical Care Time: non-applicable (SHUKRI PERKINS,PASHA RESTREPO)
[2017-01-19] MEDS ORDERED: DOXYCYCLINE HY100 M4 PO (12:21)
[2017-01-19 12:26] VITALS: BP 135/88
== END 2017-01-19 12:27 ==
LOC: ERH 09:19
PROVIDERS: Physician Assistant
DX: M25.50 Pain in unspecified joint (principal); J44.9 Chronic obstructive pulmonary disease, unspecified; R53.83 Other fatigue; Z87.891 Personal history of nicotine dependence
CPT/HCPCS: 86618; 93005; 93010

== ENCOUNTER → 2017-10-28 | Day surgery (SDC) | payer OTHER, MEDICARE ==
[~2017-10-28] VITALS: Ht 182.9 cm; Wt 74.4 kg
[~2017-10-28] MED LIST changes: +DOXYCYCLINE HY100 M4 PO; +TRAZODONE HCL50 M1 PO
--- NOTE | 2017-10-28 09:12 | Operative Report ---
Operative/Inv Procedure Report Surgery Date: 10/28/17 Name of Procedure: Laparoscopic right inguinal hernia repair Pre-Operative Diagnosis: Right inguinal hernia Post-Operative Diagnosis: Same Estimated Blood Loss: scant Surgeon/Classified Ad Taker: Rubio CARUSO,Juan Diego Josue/Guerita DAVIS Anesthesia: general endotracheal tube Implants: Parietex mesh Operative/Procedure Note Note: After consent patient is brought to the operating room laid supine. General anesthesia was obtained and the abdomen was prepped and draped. Skin was anesthetized with local anesthesia and a transverse infraumbilical incision made sharply. We identified the rectus fascia and incised transversely. Stay sutures were placed. Rectus muscle was retracted laterally and a dissecting balloon placed posterior to it. It was inflated under direct vision the camera and replaced with a blunt Campbell port. Gas was instilled. 2, 5 mm ports were placed in the infraumbilical midline after local anesthesia was instilled and under direct vision and camera. Began our dissection at the pubis and delineated the symphysis. Joe's ligament was identified and cleared. There is a moderate sized direct hernia that was reduced and reflected inferiorly. We then dissected laterally and developed the iliopubic tract. The cord structures were circumferentially dissected. There is no indirect hernia or significant cord lipoma. Once the dissection was completed a right-sided piece of Parietex mesh was placed in the cavity. It was placed around the cord structures re- create the internal ring and cover the femoral and direct spaces as well. Gas was allowed to escape on maintaining proper orientation of the mesh. The fascia was closed with 0 Vicryl suture. Skin incisions closed with 4-0 Vicryl. Steri- Strips and sterile dressing applied. Sponge and needle counts are correct. Findings: Direct CC: Eric CARUSO,Lucas Brock
== END ==
LOC: STS 01:37
DX: K40.90 Unilateral inguinal hernia, without obstruction or gangrene, not specified as recurrent (principal); Z87.891 Personal history of nicotine dependence
CPT/HCPCS: C1781; J0131; J2250; J3490